=== PATIENT | male | born 1980 | race Caucasian/White ===

== ENCOUNTER 2020-01-31 08:04 | Emergency (ER) | payer SELFPAY ==
[~2020-01-31] VITALS: Ht 177.8 cm; Wt 92.9 kg
[2020-01-31 08:11] VITALS: BP 151/85
--- NOTE | 2020-01-31 09:22 | NUR ---
[facility] [employer]: CALLED FOR PT. PT NOT IN LOBBY.
--- NOTE | 2020-01-31 09:50 | NUR ---
RN MDS: PT WALKED BACK FROM LOBBY TO ROOM AT THIS TIME. NO ACUTE DISTRESS AT THIS TIME.
--- NOTE | 2020-01-31 10:03 | NUR ---
MOUTH ULCERS X3 DAYS. PAINFUL SPOT ON BOTTOM OF RT FOOT X4 MONTHS.
--- NOTE | 2020-01-31 10:27 | NUR ---
ASSUMED CARE FOR DISCHARGE ONLY Patient/Caregiver given discharge instructions and they have confirmed that they understand the instructions. Patient ambulatory with steady gait.
== END 2020-01-31 10:30 | disposition home or self-care (01) ==
LOC: ED 10:25
DX: K12.0 Recurrent oral aphthae (principal); B07.0 Plantar wart
CPT/HCPCS: 99282